=== PATIENT | male | born 1970 | race American Indian/Alaskan Native ===

== ENCOUNTER 2016-07-18 19:29 | Emergency (ER) | payer MEDICARE, MEDICAID ==
[2016-07-18 20:04] VITALS: BP 148/79
[2016-07-18] MEDS ORDERED: Clindamycin Phosphate 900 MG in Sodium Chloride 0.9% 100 ML IV ONE (20:09)
--- NOTE | 2016-07-18 20:15 | EDM.PDOC ---
ED HPI Skin/Rash - General Chief Complaint: Skin Complaint Stated Complaint: ABCESS Time Seen by Provider: 07/18/16 20:09 Source: Reports: Patient History Limitations: Reports: No limitations - History of Present Illness INITIAL COMMENTS - FREE TEXT/NARRATIVE: c/o recurrent axillary abscess. prefer ABX Vs aspiration. 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 - Related Data Allergies Allergy/AdvReac Type Severity Reaction Status Date / Time metformin Allergy Abdominal Verified 07/18/16 20:04 Pain Home Meds: Ambulatory Orders Medication Instructions Recorded Confirmed Lisinopril [Prinivil] 10 mg PO BID 01/28/14 07/18/16 Metoprolol Succinate 150 mg PO BID 01/28/14 07/18/16 amLODIPine Besylate [Amlodipine 5 mg PO BID 01/28/14 07/18/16 Besylate] Insulin Detemir [Levemir] 8 units SQ BID 04/20/16 07/18/16 Insulin Aspart [Novolog Flexpen] 8 units SQ TID 07/18/16 07/18/16 Past Medical History HEENT History: Reports: Cataract Cardiovascular History: Reports: Hypertension Respiratory History: Reports: Bronchitis, recurrent, Pneumonia, recurrent Gastrointestinal History: Reports: None Genitourinary History: Reports: Other (see below) Other Genitourinary History: former hemodialysis Musculoskeletal History: Reports: None Neurological History: Reports: None Psychiatric History: Reports: None Endocrine/Metabolic History: Reports: Diabetes, type II Hematologic History: Reports: None 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 Oncologic (Cancer) History: Reports: None Dermatologic History: Reports: None - Infectious Disease History Infectious Disease History: Reports: None - Past Surgical History Head Surgeries/Procedures: Reports: None Cardiovascular Surgical History: Reports: None Respiratory Surgical History: Reports: None GI Surgical History: Reports: Cholecystectomy Male Surgical History: Reports: Nephrectomy, Other (see below) Other Male Surgeries/Procedures: kidney transplant October 2015 Endocrine Surgical History: Reports: None Neurological Surgical History: Reports: None Musculoskeletal Surgical History: Reports: None Social & Family History - Family History Family Medical History: Noncontributory - Tobacco Use Smoking Status *Q: Never Smoker Years of Tobacco use: 10 Packs/Tins Daily: 0.2 Used Tobacco, but Quit: No Month Tobacco Last Used: jan Second Hand Smoke Exposure: Yes - Alcohol Use Days Per Week of Alcohol Use: 0 - Recreational Drug Use Recreational Drug Use: No - Living Situation & Occupation Living situation: Reports: with family ED ROS GENERAL - Review of Systems Review Of Systems: ROS reveals no pertinent complaints other than HPI. ED EXAM, SKIN/RASH Exam: See Below Exam Limited By: No limitations General Appearance: alert, WD/WN, no apparent distress Ears: hearing grossly normal Throat/Mouth: Normal voice, No airway compromise Head: atraumatic Neck: non-tender, full range of motion Respiratory/Chest: no respiratory distress Cardiovascular: regular rate, rhythm GI/Abdominal: soft, non tender Extremities: other (left axillary tender abscess mild eythema without lymphangitis, NV wnl) Neurological: alert, oriented, normal cognition, normal gait, no motor/sensory deficits Psychiatric: normal affect, normal mood Skin: Warm, Dry Location, Skin: upper extremity, left Characteristics: erythematous Associated features: tenderness, swelling Lymphatic: no adenopathy Course - Vital Signs Last Recorded V/S: Last Vital Signs Temp 35.8 C 07/18/16 19:58 Pulse 74 07/18/16 19:58 Resp 16 07/18/16 19:58 BP 148/79 H 07/18/16 19:58 Pulse Ox 99 07/18/16 19:58 - Orders/Labs/Meds Meds: Medications Discontinued Medications Generic Name Dose Route Start Last Admin Trade Name Gonzalez PRN Reason Stop Dose Admin Clindamycin Phosphate 900 mg/ 106 mls @ 200 mls/hr 07/18/16 20:09 07/18/16 20 :21 Sodium Chloride IV 07/18/16 20:40 200 mls/hr ONETIME ONE Administration - Re-Assessments/Exams Free Text/Narrative Re-Assessment/Exam: 07/18/16 21:16 s/p IV Rx=better Departure - Departure Time of Disposition: 21:16 Disposition: Home, Self-Care 01 Condition: good Clinical Impression: Abscess Instructions: Abscess, [id number] Forms: ED Department Discharge Additional Instructions: 1) keep area clean, dry, covered 2) try hot compress 3) follow up at clinic or recheck as needed rx given: clindamycin 150mg qid x 40
== END 2016-07-18 20:20 | disposition home or self-care (01) ==
LOC: DL.ED 19:29
DX: L02.412 Cutaneous abscess of left axilla (principal); E11.9 Type 2 diabetes mellitus without complications; Z79.4 Long term (current) use of insulin; I10 Essential (primary) hypertension; Z94.0 Kidney transplant status; Z88.8 Allergy status to other drugs, medicaments and biological substances; Z79.899 Other long term (current) drug therapy
CPT/HCPCS: 96374; 99283; J7050; S0077

== ENCOUNTER 2016-09-04 18:33 | Emergency (ER) | payer MEDICARE, MEDICAID ==
[2016-09-04] MEDS ORDERED: Albuterol/Ipratropium 3.0-0.5 MG/3 ML Neb Soln NEB ONE (18:50)
[2016-09-04 18:53] VITALS: BP 156/80
--- NOTE | 2016-09-04 18:54 | EDM.PDOC ---
ED HPI GENERAL MEDICAL PROBLEM - General Chief Complaint: General Stated Complaint: CONGESTION Time Seen by Provider: 09/04/16 18:52 Source of Information: Reports: Patient History Limitations: Reports: No Limitations - History of Present Illness INITIAL COMMENTS - FREE TEXT/NARRATIVE: 2 weeks h/o cough congestion not seen anyone and not getting any better. coughing all night hard to sleep. Middle Chest Pain Score (Numeric/FACES): 4 - Related Data Allergies Allergy/AdvReac Type Severity Reaction Status Date / Time metformin Allergy Abdominal Verified 09/04/16 18:46 Pain Home Meds: Home Meds Metoprolol Succinate 150 mg PO BID 01/28/14 [History] amLODIPine Besylate [Amlodipine Besylate] 5 mg PO BID 01/28/14 [History] Insulin Detemir [Levemir] 10 units SQ BID 04/20/16 [History] Insulin Aspart [Novolog Flexpen] 10 units SQ TID 07/18/16 [History] Mycophenolate Mofetil [Cellcept] 0 mg PO BID 09/04/16 [History] Prednisone [IJP: Prednisone] 0 mg PO BID 09/04/16 [History] Past Medical History HEENT History: Reports: Cataract Cardiovascular History: Reports: Hypertension Respiratory History: Reports: Bronchitis, Recurrent, Pneumonia, Recurrent Gastrointestinal History: Reports: None Genitourinary History: Reports: Other (See Below) Other Genitourinary History: former hemodialysis Musculoskeletal History: Reports: None Neurological History: Reports: None Psychiatric History: Reports: None Endocrine/Metabolic History: Reports: Diabetes, Type II Hematologic History: Reports: None Immunologic History: Reports: Solid Organ Transplant Oncologic (Cancer) History: Reports: None Dermatologic History: Reports: None Other Dermatologic History: abscess - Infectious Disease History Infectious Disease History: Reports: None - Past Surgical History Male Surgical History: Reports: Nephrectomy, Other (See Below) Social & Family History - Family History Family Medical History: Noncontributory - Tobacco Use Smoking Status *Q: Never Smoker Years of Tobacco use: 10 Packs/Tins Daily: 0.2 Used Tobacco, but Quit: No Month Tobacco Last Used: jan Second Hand Smoke Exposure: Yes - Alcohol Use Days Per Week of Alcohol Use: 0 - Recreational Drug Use Recreational Drug Use: No - Living Situation & Occupation Living situation: Reports: with Family ED ROS GENERAL - Review of Systems Review Of Systems: ROS reveals no pertinent complaints other than HPI. ED EXAM, GENERAL - Physical Exam Exam: See Below Exam Limited By: No Limitations General Appearance: Alert, WD/WN, Mild Distress, Other (episodic cough spasms) Ears: Normal External Exam, Normal Canal, Hearing Grossly Normal Ear Exam: Bilateral Ear: TM Dull Nose: Clear Rhinorrhea Throat/Mouth: Inflammation Head: Atraumatic Neck: Non-Tender, Full Range of Motion Respiratory/Chest: No Respiratory Distress, No Accessory Muscle Use, Rhonchi, Wheezing. No: Decreased Breath Sounds, Retractions, Splinting Cardiovascular: Regular Rate, Rhythm GI/Abdominal: Soft, Non-Tender Neurological: Alert, Oriented, Normal Cognition, Normal Gait, No Motor/Sensory Deficits Psychiatric: Normal Affect, Normal Mood Skin Exam: Warm, Dry Lymphatic: No Adenopathy Course - Vital Signs Last Recorded V/S: Last Vital Signs Temp 36.3 C 09/04/16 18:50 Pulse 76 09/04/16 19:06 Resp 18 09/04/16 18:50 BP 156/80 H 09/04/16 18:50 Pulse Ox 95 09/04/16 18:50 - Orders/Labs/Meds Orders: Active Orders 24 hr Category Date Time Status RT Aerosol Therapy [RC] ASDIRECTED Care 09/04/16 18:50 Active CULTURE STREP A CONFIRMATION [] Stat Lab 09/04/16 18:49 Results STREP SCRN A RAPID W CULT CONF [] Stat Lab 09/04/16 18:49 Results Meds: Medications Discontinued Medications Generic Name Dose Route Start Last Admin Trade Name Janesq PRN Reason Stop Dose Admin Albuterol/Ipratropium 3 ml 09/04/16 18:50 09/04/16 18:56 Duoneb 3.0-0.5 Mg/3 Ml NEB 09/04/16 18:51 3 ml ONETIME ONE Administration Promethazine HCl/Codeine 5 ml 09/04/16 19:36 09/04/16 19:44 Phenergan With Codeine PO 09/04/16 19:37 5 ml ONETIME ONE Administration - Re-Assessments/Exams Free Text/Narrative Re-Assessment/Exam: 09/04/16 19:37 s/p duoneb=much better Departure - Departure Time of Disposition: 19:52 Disposition: Home, Self-Care 01 Condition: good Clinical Impression: Bronchospasm with bronchitis, acute - Discharge Information Instructions: Bronchospasm, Adult Forms: ED Department Discharge Additional Instructions: 1) sleep and rest 2) don't sleep flat at night 3) use neb 3 times daily 4) follow up at clinic or recheck as needed rx given: albuterol 2.5mg solution tid prn phenergan codeine syrup qid prn - My Orders Last 24 Hours: My Active Orders 09/04/16 18:49 CULTURE STREP A CONFIRMATION [RM] Stat STREP SCRN A RAPID W CULT CONF [RM] Stat 09/04/16 18:50 RT Aerosol Therapy [RC] ASDIRECTED - Assessment/Plan Last 24 Hours: My Active Orders 09/04/16 18:49 CULTURE STREP A CONFIRMATION [RM] Stat STREP SCRN A RAPID W CULT CONF [RM] Stat 09/04/16 18:50 RT Aerosol Therapy [RC] ASDIRECTED
[2016-09-04] MEDS ORDERED: Codeine/Promethazine 10-6.25 MG/5 ML Syrup 5 ML UD Cup PO ONE (19:36)
== END 2016-09-04 19:57 | disposition home or self-care (01) ==
LOC: DL.ED 18:33
DX: J20.9 Acute bronchitis, unspecified (principal); E11.9 Type 2 diabetes mellitus without complications; Z88.8 Allergy status to other drugs, medicaments and biological substances; Z79.4 Long term (current) use of insulin; Z87.01 Personal history of pneumonia (recurrent)
CPT/HCPCS: 71020; 87081; 87430; 87804; 94640; 99284; A9270

== ENCOUNTER 2016-09-09 16:07 | Emergency (ER) | payer MEDICARE, MEDICAID ==
[2016-09-09 16:23] VITALS: BP 136/75
--- NOTE | 2016-09-09 16:28 | EDM.PDOC ---
{null, ED HPI GENERAL MEDICAL PROBLEM - General Chief Complaint: ENT Problem Stated Complaint: ENT Time Seen by Provider: 09/09/16 16:20 Source of Information: Reports: Patient - History of Present Illness INITIAL COMMENTS - FREE TEXT/NARRATIVE: patient comes emergency Department today with complaints of one week of sinus congestion and ear plugging. He has a lot of pressure in his ears which has slowly gotten worse over the past 24-48 hours. Right Ear Pain Score (Numeric/FACES): 3 - Related Data Allergies Allergy/AdvReac Type Severity Reaction Status Date / Time metformin Allergy Abdominal Verified 09/09/16 16:19 Pain Home Meds: Home Meds Metoprolol Succinate 150 mg PO BID 01/28/14 [History] amLODIPine Besylate [Amlodipine Besylate] 5 mg PO BID 01/28/14 [History] Insulin Detemir [Levemir] 10 units SQ BID 04/20/16 [History] Insulin Aspart [Novolog Flexpen] 10 units SQ TID 07/18/16 [History] Mycophenolate Mofetil [Cellcept] 0 mg PO BID 09/04/16 [History] Prednisone [IJP: Prednisone] 0 mg PO BID 09/04/16 [History] Past Medical History HEENT History: Reports: Cataract Cardiovascular History: Reports: Hypertension Respiratory History: Reports: Bronchitis, Recurrent, Pneumonia, Recurrent Gastrointestinal History: Reports: None Genitourinary History: Reports: Other (See Below) Other Genitourinary History: former hemodialysis Musculoskeletal History: Reports: None Neurological History: Reports: None Psychiatric History: Reports: None Endocrine/Metabolic History: Reports: Diabetes, Type II Hematologic History: Reports: None Immunologic History: Reports: Solid Organ Transplant Oncologic (Cancer) History: Reports: None Dermatologic History: Reports: None Other Dermatologic History: abscess - Infectious Disease History Infectious Disease History: Reports: None - Past Surgical History Head Surgeries/Procedures: Reports: None Male Surgical History: Reports: Nephrectomy, Other (See Below) Other Male Surgeries/Procedures: kidney trasplant 11/21/16 Social & Family History - Family History Family Medical History: Noncontributory - Tobacco Use Smoking Status *Q: Never Smoker Years of Tobacco use: 10 Packs/Tins Daily: 0.2 Used Tobacco, but Quit: No Month Tobacco Last Used: oct Second Hand Smoke Exposure: Yes - Caffeine Use Caffeine Use: Reports: Coffee, Soda - Alcohol Use Days Per Week of Alcohol Use: 0 - Recreational Drug Use Recreational Drug Use: No - Living Situation & Occupation Living situation: Reports: with Family ED ROS ENT - Review of Systems Review Of Systems: See Below ED EXAM, ENT - Physical Exam Exam: See Below Exam Limited By: No Limitations General Appearance: Alert, WD/WN, No Apparent Distress Eye Exam: Bilateral Eye: EOMI, Normal Inspection, PERRL Ears: Normal External Exam, Normal Canal, Hearing Grossly Normal, Normal TMs Nose: Normal Inspection, No Blood, Clear Rhinorrhea, Nasal Swelling, Injected Turbinates. No: Normal Mucousa (mildly erythematous and boggy turbinates bilaterally.), Nasal Tenderness, Septal Deformity, Active Bleeding Mouth/Throat: Normal Inspection, Normal Gums, Normal Lips, Normal Oropharynx ( except for posterior pharynx with cobblestoning and pink salmon colored vesicles consistent with postnasal drip.), Normal Teeth Head: Atraumatic, Normocephalic Neck: Normal Inspection, Supple, Non-Tender, Full Range of Motion Respiratory/Chest: No Respiratory Distress, Lungs Clear, Normal Breath Sounds, No Accessory Muscle Use, Chest Non-Tender Cardiovascular: Normal Peripheral Pulses, Regular Rate, Rhythm, No Edema GI/Abdominal: Normal Bowel Sounds, Soft, Non-Tender (Male) Exam: Deferred Rectal (Males) Exam: Deferred Extremities: Normal Inspection, Normal Capillary Refill Neurological: Alert, Oriented, CN II-XII Intact Psychiatric: Normal Affect, Normal Mood Skin: Warm, Dry, Intact, Normal Color, No Rash Course - Vital Signs Last Recorded V/S: Last Vital Signs Temp 36.6 C 09/09/16 16:19 Pulse 97 09/09/16 16:19 Resp 18 09/09/16 16:19 BP 136/75 09/09/16 16:19 Pulse Ox 98 09/09/16 16:19 - Orders/Labs/Meds Orders: Active Orders 24 hr Category Date Time Status CULTURE STREP A CONFIRMATION [] Stat Lab 09/09/16 16:24 Results STREP SCRN A RAPID W CULT CONF [] Stat Lab 09/09/16 16:24 Results - Re-Assessments/Exams Free Text/Narrative Re-Assessment/Exam: 09/09/16 17:06 negative strep screen. I explained to the patient that this is most likely environmental allergies or other sinusitis. Conservative management with nasal saline rinses to take his own and continuing albuterol would be most appropriate at this time. Do not find any indication for antibiotic therapy at this time. His bronchitis is improving with his albuterol for which he can continue. Treating his sinuses may also help his bronchitis. Discharge instructions as below were explained to the patient he is comfortable with this plan his questions were answered Departure - Departure Time of Disposition: 17:02 Disposition: Home, Self-Care 01 Condition: good Clinical Impression: Sinus congestion, Sinus headache - Discharge Information Instructions: Sinusitis, Adult, [id number], Sinus Headache Forms: ED Department Discharge Additional Instructions: Tylenol and/or ibuprofen as needed for headache. Nasal saline rinse bilateral nares twice a day. May use a Manning pot or other [id number] mechanisms. 10 minutes after the nasal saline Flonase 2 sprays each nares once a day for one week then one spray each nares following that. May continue the over the counter Nasal decongestant. Continue the Albuterol for the bronchitis and cough. Honey as needed for cough. - My Orders Last 24 Hours: My Active Orders 09/09/16 16:24 CULTURE STREP A CONFIRMATION [RM] Stat STREP SCRN A RAPID W CULT CONF [RM] Stat - Assessment/Plan Last 24 Hours: My Active Orders 09/09/16 16:24 CULTURE STREP A CONFIRMATION [RM] Stat STREP SCRN A RAPID W CULT CONF [RM] Stat Assessment:: Sinus congestion Sinus headache. Plan: Tylenol and/or ibuprofen as needed for headache. Nasal saline rinse bilateral nares twice a day. May use a Manning pot or other [id number] mechanisms. 10 minutes after the nasal saline Flonase 2 sprays each nares once a day for one week then one spray each nares following that. May continue the over the counter Nasal decongestant. Continue the Albuterol for the bronchitis and cough. Honey as needed for cough. }
== END 2016-09-09 17:16 | disposition home or self-care (01) ==
LOC: DL.ED 16:07
DX: R09.81 Nasal congestion (principal); R51 Headache; I10 Essential (primary) hypertension; E11.9 Type 2 diabetes mellitus without complications; Z98.890 Other specified postprocedural states; Z79.4 Long term (current) use of insulin; Z88.8 Allergy status to other drugs, medicaments and biological substances
CPT/HCPCS: 87081; 87430; 99282

== ENCOUNTER 2016-12-11 19:01 | Emergency (ER) | payer MEDICARE, MEDICAID ==
[2016-12-11] MEDS ORDERED: Clindamycin HCl 150 MG Cap PO ONE (19:19)
--- NOTE | 2016-12-11 19:24 | EDM.PDOC ---
ED HPI GENERAL MEDICAL PROBLEM - General Chief Complaint: Bite:Animal, Insect Stated Complaint: SPIDER BITE ON LEG Time Seen by Provider: 12/11/16 19:21 Source of Information: Reports: Patient History Limitations: Reports: No Limitations - History of Present Illness INITIAL COMMENTS - FREE TEXT/NARRATIVE: occurred 1 1/2 weeks ago not seen anyone not getting better, been cleaning it daily with peroxide and bandage - Related Data Allergies Allergy/AdvReac Type Severity Reaction Status Date / Time metformin Allergy Abdominal Verified 12/11/16 19:06 Pain Home Meds: Home Meds Metoprolol Succinate 150 mg PO BID 01/28/14 [History] amLODIPine Besylate [Amlodipine Besylate] 5 mg PO BID 01/28/14 [History] Insulin Detemir [Levemir] 10 units SQ BID 04/20/16 [History] Insulin Aspart [Novolog Flexpen] 10 units SQ TID 07/18/16 [History] Mycophenolate Mofetil [Cellcept] 0 mg PO BID 09/04/16 [History] Prednisone [IJP: Prednisone] 0 mg PO BID 09/04/16 [History] Calcitriol 0.25 mcg PO DAILY 12/11/16 [History] Potassium Phosphate, Dibasic [Potassium Phosphate] 1 gm MC TID 12/11/16 [History ] Past Medical History HEENT History: Reports: Cataract Cardiovascular History: Reports: Hypertension Respiratory History: Reports: Bronchitis, Recurrent, Pneumonia, Recurrent Gastrointestinal History: Reports: None Genitourinary History: Reports: Other (See Below) Other Genitourinary History: former hemodialysis Musculoskeletal History: Reports: None Neurological History: Reports: None Psychiatric History: Reports: None Endocrine/Metabolic History: Reports: Diabetes, Type II Hematologic History: Reports: None Immunologic History: Reports: Solid Organ Transplant Oncologic (Cancer) History: Reports: None Dermatologic History: Reports: None Other Dermatologic History: abscess - Infectious Disease History Infectious Disease History: Reports: None - Past Surgical History Head Surgeries/Procedures: Reports: None Male Surgical History: Reports: Nephrectomy, Other (See Below) Other Male Surgeries/Procedures: kidney trasplant 11/21/16 Social & Family History - Family History Family Medical History: Noncontributory - Tobacco Use Smoking Status *Q: Never Smoker Years of Tobacco use: 10 Packs/Tins Daily: 0.2 Used Tobacco, but Quit: No Month Tobacco Last Used: jan Second Hand Smoke Exposure: No - Caffeine Use Caffeine Use: Reports: Coffee, Soda - Alcohol Use Days Per Week of Alcohol Use: 0 - Recreational Drug Use Recreational Drug Use: No - Living Situation & Occupation Living situation: Reports: with Family ED ROS GENERAL - Review of Systems Review Of Systems: ROS reveals no pertinent complaints other than HPI. ED EXAM, ANIMAL BITE - Physical Exam Exam: See Below Exam Limited By: No Limitations General Appearance: Alert, WD/WN, No Apparent Distress Ears: Hearing Grossly Normal Throat/Mouth: Normal Voice, No Airway Compromise Head: Atraumatic Neck: Non-Tender, Full Range of Motion Respiratory/Chest: No Respiratory Distress Cardiovascular: Regular Rate, Rhythm GI/Abdominal: Soft, Non-Tender Extremities: Other (left thigh with draining abscess mild local erthema without lymphangitis, NV wnl, ) Neurological: Alert, Oriented, Normal Cognition, Normal Gait, No Motor/Sensory Deficits Psychiatric: Normal Affect, Normal Mood Skin Exam: Normal Color, Warm/Dry Course - Vital Signs Last Recorded V/S: Last Vital Signs Temp 36.1 C 12/11/16 19:04 Pulse 78 12/11/16 19:04 Resp 18 12/11/16 19:04 BP 178/87 H 12/11/16 19:04 Pulse Ox 99 12/11/16 19:04 - Orders/Labs/Meds Orders: Active Orders 24 hr Category Date Time Status CULTURE WOUND [RM] Stat Lab 12/11/16 19:16 Ordered Clindamycin HCl [Cleocin] Med 12/11/16 19:19 Once 150 mg PO ONETIME ONE Medication Orders Clindamycin HCl (Cleocin) 150 mg PO ONETIME ONE Stop: 12/11/16 19:20 Meds: Medications Generic Name Dose Route Start Last Admin Trade Name Freq PRN Reason Stop Dose Admin Clindamycin HCl 150 mg 12/11/16 19:19 Cleocin PO 12/11/16 19:20 ONETIME ONE Departure - Departure Time of Disposition: 19:23 Disposition: Home, Self-Care 01 Condition: Good Clinical Impression: Abscess - Discharge Information Instructions: Insect Bite, [id number] Forms: ED Department Discharge Additional Instructions: 1) keep wound clean dry covered 2) recheck if looks worse 3) follow up at clinic rx given; clindamycin 150mg qid x 40 - My Orders Last 24 Hours: My Active Orders 12/11/16 19:16 CULTURE WOUND [RM] Stat 12/11/16 19:19 Clindamycin HCl [Cleocin] 150 mg PO ONETIME ONE - Assessment/Plan Last 24 Hours: My Active Orders 12/11/16 19:16 CULTURE WOUND [RM] Stat 12/11/16 19:19 Clindamycin HCl [Cleocin] 150 mg PO ONETIME ONE
[2016-12-11 19:28] VITALS: BP 154/81
== END 2016-12-11 19:28 | disposition home or self-care (01) ==
LOC: DL.ED 19:01
DX: L02.416 Cutaneous abscess of left lower limb (principal); I10 Essential (primary) hypertension; E11.9 Type 2 diabetes mellitus without complications; Z88.8 Allergy status to other drugs, medicaments and biological substances; Z79.4 Long term (current) use of insulin; Z87.01 Personal history of pneumonia (recurrent)
CPT/HCPCS: 87070; 99283; A9270; 87077; 87186

== ENCOUNTER 2016-12-21 19:19 | Emergency (ER) | payer MEDICARE, MEDICAID, OTHER ==
[2016-12-21] MEDS ORDERED: Acetaminophen/HYDROcodone 325-10 MG Tab PO ONE (20:07)
[2016-12-21] MEDS ORDERED: Clindamycin HCl 150 MG Cap PO ONE (20:07)
--- NOTE | 2016-12-21 20:13 | EDM.PDOC ---
ED HPI GENERAL MEDICAL PROBLEM - General Chief Complaint: Cardiovascular Problem Stated Complaint: BLOOD PRESSURE HIGH, [id number] Time Seen by Provider: 12/21/16 20:08 Source of Information: Reports: Patient History Limitations: Reports: No Limitations - History of Present Illness INITIAL COMMENTS - FREE TEXT/NARRATIVE: states been taking his Rx but has a raging tooth ache from broken tooth. denies CP/SOB/WRIGHT. Left Gums Pain Score (Numeric/FACES): 6 - Related Data Allergies Allergy/AdvReac Type Severity Reaction Status Date / Time metformin Allergy Abdominal Verified 12/21/16 19:45 Pain Home Meds: Home Meds Metoprolol Succinate 100 mg PO BID 01/28/14 [History] amLODIPine Besylate [Amlodipine Besylate] 5 mg PO BID 01/28/14 [History] Insulin Detemir [Levemir] 10 units SQ BID 04/20/16 [History] Insulin Aspart [Novolog Flexpen] 10 units SQ TID 07/18/16 [History] Mycophenolate Mofetil [Cellcept] 250 mg PO BID 09/04/16 [History] Prednisone [IJP: Prednisone] 5 mg PO DAILY 09/04/16 [History] Calcitriol 0.25 mcg PO DAILY 12/11/16 [History] Potassium Phosphate, Dibasic [Potassium Phosphate] 1 gm MC TID 12/11/16 [History ] Past Medical History HEENT History: Reports: Cataract Cardiovascular History: Reports: Hypertension Respiratory History: Reports: Bronchitis, Recurrent, Pneumonia, Recurrent Gastrointestinal History: Reports: None Genitourinary History: Reports: Other (See Below) Other Genitourinary History: former hemodialysis Musculoskeletal History: Reports: None Neurological History: Reports: None Psychiatric History: Reports: None Endocrine/Metabolic History: Reports: Diabetes, Type II Hematologic History: Reports: None Immunologic History: Reports: Solid Organ Transplant Oncologic (Cancer) History: Reports: None Dermatologic History: Reports: None Other Dermatologic History: abscess - Infectious Disease History Infectious Disease History: Reports: None - Past Surgical History Head Surgeries/Procedures: Reports: None Male Surgical History: Reports: Nephrectomy, Other (See Below) Other Male Surgeries/Procedures: kidney trasplant 11/21/16 Social & Family History - Family History Family Medical History: Noncontributory - Tobacco Use Smoking Status *Q: Never Smoker Years of Tobacco use: 10 Packs/Tins Daily: 0.2 Used Tobacco, but Quit: No Month Tobacco Last Used: oct Second Hand Smoke Exposure: No - Caffeine Use Caffeine Use: Reports: Coffee, Soda - Alcohol Use Days Per Week of Alcohol Use: 0 - Recreational Drug Use Recreational Drug Use: No - Living Situation & Occupation Living situation: Reports: with Family ED ROS GENERAL - Review of Systems Review Of Systems: ROS reveals no pertinent complaints other than HPI. ED EXAM, GENERAL - Physical Exam Exam: See Below Exam Limited By: No Limitations General Appearance: Alert, WD/WN, Mild Distress, Other (tooth pain) Ears: Hearing Grossly Normal Throat/Mouth: Normal Voice, No Airway Compromise Head: Atraumatic Neck: Non-Tender, Full Range of Motion Respiratory/Chest: No Respiratory Distress Cardiovascular: Regular Rate, Rhythm GI/Abdominal: Soft, Non-Tender Neurological: Alert, Oriented, Normal Cognition, Normal Gait, No Motor/Sensory Deficits Psychiatric: Flat Affect, Tearful Skin Exam: Warm, Dry, Normal Color Lymphatic: No Adenopathy Course - Vital Signs Last Recorded V/S: Last Vital Signs Temp 36.6 C 12/21/16 19:39 Pulse 74 12/21/16 19:39 Resp 18 12/21/16 19:39 BP 160/73 H 12/21/16 19:39 Pulse Ox 100 12/21/16 19:39 - Orders/Labs/Meds Orders: Active Orders 24 hr Category Date Time Status Acetaminophen/HYDROcodone [Bozman 325-10 MG] Med 12/21/16 20:07 Once 1 tab PO ONETIME ONE Clindamycin HCl [Cleocin] Med 12/21/16 20:07 Once 150 mg PO ONETIME ONE Departure - Departure Time of Disposition: 20:10 Disposition: Home, Self-Care 01 Condition: Good Clinical Impression: Dental abscess Instructions: Dental Abscess, [id number] Additional Instructions: 1) avoid solid foods 2) soft foods 3) see Dentist rx given; clindamycin 150mg qid x 40 vicodin 5/325mg bid x 12 - My Orders Last 24 Hours: My Active Orders 12/21/16 20:07 Acetaminophen/HYDROcodone [Bozman 325-10 MG] 1 tab PO ONETIME ONE Clindamycin HCl [Cleocin] 150 mg PO ONETIME ONE - Assessment/Plan Last 24 Hours: My Active Orders 08/30/17 20:07 Acetaminophen/HYDROcodone [Bozman 325-10 MG] 1 tab PO ONETIME ONE Clindamycin HCl [Cleocin] 150 mg PO ONETIME ONE
[2016-12-21 20:40] VITALS: BP 167/86
== END 2016-12-21 20:40 | disposition home or self-care (01) ==
LOC: DL.ED 19:19
DX: K04.7 Periapical abscess without sinus (principal); I10 Essential (primary) hypertension; Z87.01 Personal history of pneumonia (recurrent); E11.9 Type 2 diabetes mellitus without complications; Z94.0 Kidney transplant status; Z88.8 Allergy status to other drugs, medicaments and biological substances; Z79.4 Long term (current) use of insulin; Z79.899 Other long term (current) drug therapy
CPT/HCPCS: 99282; A9270

== ENCOUNTER 2017-05-13 13:19 | Emergency (ER) | payer MEDICARE, MEDICAID ==
[2017-05-13 13:41] VITALS: BP 149/83
--- NOTE | 2017-05-13 13:59 | CR ---
Clinical history: 46-year-old diabetic male with clinical "neuropathy" who fell injuring right foot o monday (swollen). Interpretation: Slightly impacted but otherwise anatomically aligned distal diametaphyseal fractures of the right second, third and fourth metatarsals. Generalized osteopenia and chronic arthritic changes (small heel spur at the insertion plantar aponeu rosis base of the os calcis). Extensive arteriovascular calcifications in soft tissues typical of diabetic. No foreign body or oste omyelitis. CONCLUSION: Nondisplaced fractures 2nd, 3rd and 4th metatarsals right foot.
--- NOTE | 2017-05-13 19:31 | EDM.PDOC ---
Scribed by Mikayla Caballero 05/13/17 1465 for Marilia Smith NP ED HPI GENERAL MEDICAL PROBLEM - General Chief Complaint: Lower Extremity Injury/Pain Stated Complaint: [id number] FALL AND FOOT SWOLLEN AND BRUSE Time Seen by Provider: 05/13/17 14:40 Source of Information: Reports: Patient, RN, RN Notes Reviewed History Limitations: Reports: No Limitations - History of Present Illness INITIAL COMMENTS - FREE TEXT/NARRATIVE: Patient [place]. He hit his head and did loose consciousness.Pain initially after fall was back, shoulders and knees. He noticed swelling and ecchymosis on right ankle/foot on 05/11/17, Patient has partial feeling right leg/foot from diabetic neuropathy. No pain or throbbing, just swelling and bruising. Patient has been walking on it since accident. Onset Date: 05/09/17 Duration: Getting Worse Location: Reports: Lower Extremity, Right Quality: Reports: Ache Severity: Mild Improves with: Reports: None Worsens with: Reports: None Associated Symptoms: Reports: No Other Symptoms Right Feet Pain Score (Numeric/FACES): 3 - Related Data Allergies Allergy/AdvReac Type Severity Reaction Status Date / Time metformin Allergy Abdominal Verified 05/13/17 13:34 Pain Home Meds: Home Meds Metoprolol Succinate 100 mg PO BID 01/28/14 [History] amLODIPine Besylate [Amlodipine Besylate] 5 mg PO BID 01/28/14 [History] Insulin Detemir [Levemir] 10 units SQ BID 04/20/16 [History] Insulin Aspart [Novolog Flexpen] 10 units SQ TID 07/18/16 [History] Mycophenolate Mofetil [Cellcept] 250 mg PO BID 09/04/16 [History] Prednisone [IJP: Prednisone] 5 mg PO DAILY 09/04/16 [History] Calcitriol 0.25 mcg PO DAILY 12/11/16 [History] Potassium Phosphate, Dibasic [Potassium Phosphate] 1 gm MC TID 12/11/16 [History ] Past Medical History HEENT History: Reports: Cataract Cardiovascular History: Reports: Hypertension Respiratory History: Reports: Bronchitis, Recurrent, Pneumonia, Recurrent Gastrointestinal History: Reports: None Genitourinary History: Reports: Other (See Below) Other Genitourinary History: former hemodialysis Musculoskeletal History: Reports: None Neurological History: Reports: None Psychiatric History: Reports: None Endocrine/Metabolic History: Reports: Diabetes, Type II Hematologic History: Reports: None Immunologic History: Reports: Solid Organ Transplant Oncologic (Cancer) History: Reports: None Dermatologic History: Reports: None Other Dermatologic History: abscess - Infectious Disease History Infectious Disease History: Reports: None - Past Surgical History Head Surgeries/Procedures: Reports: None Male Surgical History: Reports: Nephrectomy, Other (See Below) Other Male Surgeries/Procedures: kidney trasplant 11/21/16 Social & Family History - Family History Family Medical History: Noncontributory - Tobacco Use Smoking Status *Q: Never Smoker Years of Tobacco use: 10 Packs/Tins Daily: 0.2 Used Tobacco, but Quit: No Month Tobacco Last Used: jan Second Hand Smoke Exposure: No - Caffeine Use Caffeine Use: Reports: Coffee - Alcohol Use Days Per Week of Alcohol Use: 0 - Recreational Drug Use Recreational Drug Use: No - Living Situation & Occupation Living situation: Reports: with Family Review of Systems - Review of Systems Review Of Systems: ROS reveals no pertinent complaints other than HPI. ED EXAM, GENERAL - Physical Exam Exam: See Below Exam Limited By: No Limitations General Appearance: Alert, WD/WN, No Apparent Distress Eye Exam: Bilateral Eye: Normal Inspection Ears: Normal External Exam, Normal Canal, Hearing Grossly Normal, Normal TMs Nose: Normal Inspection, Normal Mucosa, No Blood Throat/Mouth: Normal Inspection, Normal Lips, Normal Teeth, Normal Gums, Normal Oropharynx, Normal Voice, No Airway Compromise Head: Atraumatic, Normocephalic Neck: Normal Inspection, Supple, Non-Tender, Full Range of Motion Respiratory/Chest: No Respiratory Distress, Lungs Clear, Normal Breath Sounds, No Accessory Muscle Use, Chest Non-Tender Cardiovascular: Normal Peripheral Pulses, Regular Rate, Rhythm, No Edema, No Gallop, No JVD, No Murmur, No Rub GI/Abdominal: Normal Bowel Sounds, Soft, Non-Tender, No Organomegaly, No Distention, No Abnormal Bruit, No Mass (Male) Exam: Deferred Rectal (Males) Exam: Deferred Back Exam: Normal Inspection, Full Range of Motion, NT Extremities: Other (right foot swollen and ecchymosis. ) Neurological: Alert Psychiatric: Normal Affect, Normal Mood Skin Exam: Other (see extremity exam) Lymphatic: No Adenopathy Course - Vital Signs Last Recorded V/S: Last Vital Signs Temp 36.4 C 05/13/17 13:39 Pulse 73 05/13/17 13:39 Resp 20 05/13/17 13:39 BP 149/83 H 05/13/17 13:39 Pulse Ox 100 05/13/17 13:39 - Radiology Interpretation Free Text/Narrative:: Right foot x-ray: Nondisplaced fractures 2nd, 3ed and 4th metararsals right foot. See Rad report. Departure - Departure Time of Disposition: 15:02 Disposition: Home, Self-Care 01 Condition: Fair Clinical Impression: Fracture of metatarsal bone of right foot, Diabetic neuropathy, Wound abscess - Discharge Information Instructions: Cast or Splint Care, [id number], Wound Infection, [id number] , Metatarsal Fracture Forms: ED Department Discharge Additional Instructions: Use walking boot Follow up with Ortho next week RX: Bactrim Follow up with wound care next week as well Follow up with your primary care facility I have read and agree with the documentation that has been completed regarding this visit. By signing this record, I attest that the documentation was completed in my physical presence and is an accurate record of the encounter.
== END 2017-05-13 15:15 | disposition home or self-care (01) ==
LOC: DL.ED 13:19
DX: S92.324A Nondisplaced fracture of second metatarsal bone, right foot, initial encounter for closed fracture (principal); S92.334A Nondisplaced fracture of third metatarsal bone, right foot, initial encounter for closed fracture; S92.344A Nondisplaced fracture of fourth metatarsal bone, right foot, initial encounter for closed fracture; I10 Essential (primary) hypertension; E11.9 Type 2 diabetes mellitus without complications; Z88.8 Allergy status to other drugs, medicaments and biological substances; Z79.4 Long term (current) use of insulin; Z79.899 Other long term (current) drug therapy; W00.0XXA Fall on same level due to ice and snow, initial encounter
CPT/HCPCS: 73630-RT; 99283

== ENCOUNTER 2017-09-26 18:44 | Emergency (ER) | payer MEDICARE, MEDICAID, OTHER ==
[2017-09-26 19:28] VITALS: BP 164/85
[2017-09-26] MEDS ORDERED: Amoxicillin/Clavulanate K 875-125 MG Tab PO ONE (21:15)
--- NOTE | 2017-09-26 21:18 | EDM.PDOC ---
ED HPI GENERAL MEDICAL PROBLEM - General Chief Complaint: ENT Problem Stated Complaint: [id number] MIGHT BE THE FLU Time Seen by Provider: 09/26/17 21:00 Source of Information: Reports: Patient History Limitations: Reports: No Limitations - History of Present Illness INITIAL COMMENTS - FREE TEXT/NARRATIVE: This 46 yo male patient reports to the ED with a 3 week history of sinus congestion and pressure. The patient reports his symptoms have been getting worse over the past couple of days. The patient has not been seen by a primary care facility for these symptoms due to the providers changing at the [facility]. Duration: Week(s):, Constant, Getting Worse Location: Reports: Head Quality: Reports: Ache, Dull Severity: Moderate Improves with: Reports: None Worsens with: Reports: None Associated Symptoms: Reports: No Other Symptoms - Related Data Allergies Allergy/AdvReac Type Severity Reaction Status Date / Time metformin Allergy Abdominal Verified 09/26/17 19:27 Pain Home Meds: Home Meds Metoprolol Succinate 200 mg PO BID 01/28/14 [History] amLODIPine Besylate [Amlodipine Besylate] 5 mg PO BID 01/28/14 [History] Insulin Detemir [Levemir] 10 units SQ BID 04/20/16 [History] Insulin Aspart [Novolog Flexpen] 17 units SQ BID 07/18/16 [History] Mycophenolate Mofetil [Cellcept] 250 mg PO BID 09/04/16 [History] Prednisone [IJP: Prednisone] 5 mg PO DAILY 09/04/16 [History] Calcitriol 0.25 mcg PO DAILY 12/11/16 [History] Calcium Acetate [PhosLo] 667 mg PO BID 09/26/17 [History] Tacrolimus [Envarsus Xr] 2.5 mg PO BID 09/26/17 [History] Past Medical History HEENT History: Reports: Cataract Cardiovascular History: Reports: Hypertension Respiratory History: Reports: Bronchitis, Recurrent, Pneumonia, Recurrent Gastrointestinal History: Reports: None Genitourinary History: Reports: Other (See Below) Other Genitourinary History: former hemodialysis Musculoskeletal History: Reports: None Neurological History: Reports: None Psychiatric History: Reports: None Endocrine/Metabolic History: Reports: Diabetes, Type II Hematologic History: Reports: None Immunologic History: Reports: Solid Organ Transplant Oncologic (Cancer) History: Reports: None Dermatologic History: Reports: None Other Dermatologic History: abscess - Infectious Disease History Infectious Disease History: Reports: None - Past Surgical History Head Surgeries/Procedures: Reports: None Male Surgical History: Reports: Nephrectomy, Other (See Below) Other Male Surgeries/Procedures: kidney trasplant 11/21/16 Social & Family History - Family History Family Medical History: Noncontributory - Tobacco Use Smoking Status *Q: Never Smoker Second Hand Smoke Exposure: No - Caffeine Use Caffeine Use: Reports: Coffee - Recreational Drug Use Recreational Drug Use: No - Living Situation & Occupation Living situation: Reports: with Family ED ROS ENT - Review of Systems Review Of Systems: ROS reveals no pertinent complaints other than HPI. ED EXAM, ENT - Physical Exam Exam: See Below Exam Limited By: No Limitations General Appearance: Alert, WD/WN, Moderate Distress Eye Exam: Bilateral Eye: EOMI, Normal Inspection, PERRL Ears: Normal External Exam, Normal Canal, Hearing Grossly Normal, Normal TMs Nose: Normal Inspection, Normal Mucousa, No Blood Mouth/Throat: Normal Inspection, Normal Gums, Normal Lips, Normal Oropharynx, Normal Teeth Head: Sinus Tenderness (bilateral maxillary and ethmoid) Neck: Normal Inspection, Supple, Non-Tender, Full Range of Motion Respiratory/Chest: No Respiratory Distress, Lungs Clear, Normal Breath Sounds, No Accessory Muscle Use, Chest Non-Tender Cardiovascular: Normal Peripheral Pulses, Regular Rate, Rhythm, No Edema, No Gallop, No JVD, No Murmur, No Rub GI/Abdominal: Normal Bowel Sounds, Soft, Non-Tender, No Organomegaly, No Distention, No Abnormal Bruit, No Mass (Male) Exam: Deferred Rectal (Males) Exam: Deferred Back: Normal Inspection, Full Range of Motion Extremities: Normal Inspection, Normal Range of Motion, Non-Tender, No Pedal Edema, Normal Capillary Refill Neurological: Alert, Oriented, CN II-XII Intact, Normal Cognition, Normal Gait, Normal Reflexes, No Motor/Sensory Deficits Psychiatric: Normal Affect, Normal Mood Skin: Warm, Dry, Intact, Normal Color, No Rash Lymphatic: No Adenopathy Course - Vital Signs Last Recorded V/S: Last Vital Signs Temp 36.6 C 09/26/17 19:25 Pulse 76 09/26/17 19:25 Resp 18 09/26/17 19:25 BP 164/85 H 09/26/17 19:25 Pulse Ox 100 09/26/17 19:25 - Orders/Labs/Meds Meds: Medications Discontinued Medications Generic Name Dose Route Start Last Admin Trade Name Gonzalez PRN Reason Stop Dose Admin Amoxicillin/Clavulanate Potassium 1 tab 09/26/17 21:15 Augmentin 875 Mg/125 Mg PO 09/26/17 21:16 ONETIME ONE Departure - Departure Time of Disposition: 21:16 Disposition: Home, Self-Care 01 Condition: Fair Clinical Impression: Sinusitis, acute, maxillary Qualifiers: Recurrence: non-recurrent Qualified Code(s): J01.00 - Acute maxillary sinusitis , unspecified - Discharge Information Instructions: Sinusitis, Adult, [id number] Referrals: Dileep Egan [Primary Care Provider] - Forms: ED Department Discharge Care Plan Goals: The patient was advised of the examination results during the visit. The patient was given an oral dose of Augmentin (875/125) while in the ED. The patient was discharged with a script for Augmentin (500/125) to take 1 by mouth 2 times per day for 10 days. If the patient has any additional symptoms or concerns, the patient should follow-up with his primary care facility or return to the emergency department.
== END 2017-09-26 21:25 | disposition home or self-care (01) ==
LOC: DL.ED 18:44
DX: J01.00 Acute maxillary sinusitis, unspecified (principal); I10 Essential (primary) hypertension; E11.9 Type 2 diabetes mellitus without complications; Z88.8 Allergy status to other drugs, medicaments and biological substances; Z79.899 Other long term (current) drug therapy; Z79.4 Long term (current) use of insulin
CPT/HCPCS: 99282; 99283; A9270

== ENCOUNTER 2018-01-15 20:02 | Emergency (ER) | payer MEDICARE, MEDICAID ==
--- NOTE | 2018-01-15 20:18 | EDM.PDOC ---
ED HPI GENERAL MEDICAL PROBLEM - General Chief Complaint: Cardiovascular Problem Stated Complaint: HIGH BP [id number] Time Seen by Provider: 01/15/18 20:18 Source of Information: Reports: Patient, RN, RN Notes Reviewed History Limitations: Reports: No Limitations - History of Present Illness INITIAL COMMENTS - FREE TEXT/NARRATIVE: Pt to ER with c/o high blood pressure. Patient states at home his pressures were 180's/90's. He states he takes 200mg of metoprolol twice daily. He states he took one of the 100mg of metoprolol to try to get his blood pressure to come down, so he still has 100mg of metoprolol to take tonight. He states his BP went up after he took the third one to 199/90's. This concerned him so he wanted to come in to be checked out. Patient states he has had some headache and dizziness. Patient denies CP, SOB, N/V/D. He states he is diabetic and does have a healing wound on the right foot from a blister. Patient has had a kidney transplant about 3 years ago. Onset: Gradual - Related Data Allergies Allergy/AdvReac Type Severity Reaction Status Date / Time metformin Allergy Abdominal Verified 01/15/18 20:08 Pain Home Meds: Home Meds Metoprolol Succinate 200 mg PO BID 01/28/14 [History] amLODIPine Besylate [Amlodipine Besylate] 10 mg PO DAILY 01/28/14 [History] Insulin Detemir [Levemir] 12 units SQ BID 04/20/16 [History] Insulin Aspart [Novolog Flexpen] 10 units SQ BID 07/18/16 [History] Mycophenolate Mofetil [Cellcept] 250 mg PO BID 09/04/16 [History] Prednisone [IJP: Prednisone] 5 mg PO DAILY 09/04/16 [History] Calcitriol 0.25 mcg PO DAILY 12/11/16 [History] Tacrolimus [Envarsus Xr] 2.5 mg PO DAILY 09/26/17 [History] Acetaminophen [Tylenol] 325 mg PO DAILY 01/15/18 [History] Aspirin [Ecotrin] 81 mg PO DAILY 01/15/18 [History] Mycophenolate Mofetil [Cellcept] 1,000 mg PO BID 01/15/18 [History] Tacrolimus 3 mg PO DAILY 01/15/18 [History] Past Medical History HEENT History: Reports: Cataract Cardiovascular History: Reports: Hypertension Respiratory History: Reports: Bronchitis, Recurrent, Pneumonia, Recurrent Gastrointestinal History: Reports: None Genitourinary History: Reports: Other (See Below) Other Genitourinary History: former hemodialysis Musculoskeletal History: Reports: None Neurological History: Reports: None Psychiatric History: Reports: None Endocrine/Metabolic History: Reports: Diabetes, Type II Hematologic History: Reports: None Immunologic History: Reports: Solid Organ Transplant Oncologic (Cancer) History: Reports: None Dermatologic History: Reports: None Other Dermatologic History: abscess - Infectious Disease History Infectious Disease History: Reports: None - Past Surgical History Head Surgeries/Procedures: Reports: None HEENT Surgical History: Reports: Cataract Surgery Male Surgical History: Reports: Nephrectomy, Other (See Below) Other Male Surgeries/Procedures: kidney trasplant 11/21/16 Social & Family History - Family History Family Medical History: Noncontributory - Caffeine Use Caffeine Use: Reports: Coffee - Living Situation & Occupation Living situation: Reports: with Family ED ROS GENERAL - Review of Systems Review Of Systems: ROS reveals no pertinent complaints other than HPI. ED EXAM, GENERAL - Physical Exam Exam: See Below Exam Limited By: No Limitations General Appearance: Alert, WD/WN, No Apparent Distress Eye Exam: Bilateral Eye: EOMI, Normal Inspection Ears: Normal External Exam, Hearing Grossly Normal Nose: Normal Inspection Throat/Mouth: Normal Inspection, Normal Voice, No Airway Compromise Head: Atraumatic, Normocephalic Neck: Normal Inspection, Supple, Non-Tender, Full Range of Motion Respiratory/Chest: No Respiratory Distress, Lungs Clear, Normal Breath Sounds, No Accessory Muscle Use, Chest Non-Tender Cardiovascular: Normal Peripheral Pulses, Regular Rate, Rhythm, No Edema, No Gallop, No JVD, No Rub, Systolic Murmur Peripheral Pulses: 2+: Radial (L), Radial (R) GI/Abdominal: Normal Bowel Sounds, Soft, Non-Tender (Male) Exam: Deferred Rectal (Males) Exam: Deferred Back Exam: Normal Inspection, Full Range of Motion, NT Extremities: Normal Inspection, Normal Range of Motion, Non-Tender, Normal Capillary Refill, No Pedal Edema Neurological: Alert, Oriented, CN II-XII Intact, Normal Cognition, Normal Reflexes, No Motor/Sensory Deficits. No: Normal Gait (hx of foot drop) Psychiatric: Normal Affect, Normal Mood Skin Exam: Warm, Dry, Normal Color, No Rash, Wound/Incision (right foot) Lymphatic: No Adenopathy EKG INTERPRETATION EKG Date: 01/15/18 Time: 20:06 Rhythm: NSR Rate (Beats/Min): 65 [place]: Normal P-Wave: Present QRS: Normal ST-T: Normal QT: Normal Comparison: Change From Previous EKG Course - Vital Signs Last Recorded V/S: Last Vital Signs Temp 97.9 F 01/15/18 20:13 Pulse 65 01/15/18 20:13 Resp 23 H 01/15/18 20:13 BP 209/84 H 01/15/18 20:13 Pulse Ox 100 01/15/18 20:13 - Orders/Labs/Meds Orders: Active Orders 24 hr Category Date Time Status EKG 12 Lead [EKG Documentation Completion] [RC] URGENT Care 01/15/18 20:10 Active Labs: Laboratory Tests 01/15/18 01/15/18 Range/Units 20:20 20:20 WBC 7.0 (5.0-10.0) 10^3/uL RBC 5.09 (4.6-6.2) 10^6/uL Hgb 15.4 D (14.0-18.0) g/dL Hct 45.2 (40.0-54.0) % MCV 88.8 D (80-100) fL MCH 30.3 (27.0-34.0) pg MCHC 34.1 (33.0-35.0) g/dL Plt Count 132 L (150-450) 10^3/uL Neut % (Auto) 74.3 (42.2-75.2) % Lymph % (Auto) 16.2 L (20.5-50.1) % [place] % (Auto) 7.0 (2-8) % Eos % (Auto) 1.9 (1.0-3.0) % Baso % (Auto) 0.6 (0.0-1.0) % Add Manual Diff Yes Neutrophils % (Manual) 79 H (42-75) % Lymphocytes % (Manual) 16 L (20-50) % Monocytes % (Manual) 4 (2-8) % Eosinophils % (Manual) 1 (1-3) % Sodium 133 L (135-145) mmol/L Potassium 4.7 D (3.6-5.0) mmol/L Chloride 99 L (101-111) mmol/L Carbon Dioxide 26.0 (21.0-31.0) mmol/L Anion Gap 12.7 BUN 22 H D (7-18) mg/dL Creatinine 1.4 H D (0.6-1.3) mg/dL Est Cr Clr Drug Dosing 70.06 mL/min Estimated GFR (MDRD) 54 BUN/Creatinine Ratio 15.71 Glucose 238 H (74-105) mg/dL Calcium 9.8 (8.4-10.2) mg/dl Total Bilirubin 1.6 H (0.2-1.0) mg/dL AST 25 (10-42) IU/L ALT 33 (10-60) IU/L Alkaline Phosphatase 70 (42-121) IU/L Total Protein 7.2 (6.7-8.2) g/dl Albumin 4.0 (3.2-5.5) g/dl Globulin 3.2 Albumin/Globulin Ratio 1.25 Departure - Departure Time of Disposition: 21:31 Disposition: Home, Self-Care 01 Condition: Fair Clinical Impression: Hypertension Qualifiers: Hypertension type: unspecified Qualified Code(s): I10 - Essential (primary) hypertension Instructions: How to Take Your Blood Pressure, [id number], DASH Eating Plan, Hypertension, [id number] Forms: ED Department Discharge Additional Instructions: Take all medications as prescribed Follow up with your primary care physician if continued concerns with blood pressure Return to ER if you continue to have problems with high blood pressure and cannot get it down. - My Orders Last 24 Hours: My Active Orders 01/15/18 20:10 EKG 12 Lead [EKG Documentation Completion] [RC] URGENT - Assessment/Plan Last 24 Hours: My Active Orders 01/15/18 20:10 EKG 12 Lead [EKG Documentation Completion] [RC] URGENT
[2018-01-15 20:19] VITALS: BP 209/84
[2018-01-15 20:59] LABS: ANION GAP 12.7
== END 2018-01-15 21:50 | disposition home or self-care (01) ==
LOC: DL.ED 20:02
DX: I10 Essential (primary) hypertension (principal); E11.9 Type 2 diabetes mellitus without complications; S90.821A Blister (nonthermal), right foot, initial encounter; Z79.4 Long term (current) use of insulin; Z79.82 Long term (current) use of aspirin; Z94.0 Kidney transplant status; Z88.8 Allergy status to other drugs, medicaments and biological substances
CPT/HCPCS: 36415; 80053; 85025; 93005; 93010; 99283; 99284

== ENCOUNTER 2020-01-31 15:47 | Emergency (ER) | payer MEDICAID, MEDICARE ==
[2020-01-31 16:28] VITALS: BP 153/79; PULSE 64
[2020-01-31 17:58] LABS: ANION GAP 9.1 mEq/L (7-13)
--- NOTE | 2020-01-31 18:04 | EDM.PDOC ---
ED HPI GENERAL MEDICAL PROBLEM - General Chief Complaint: Abdominal Pain Stated Complaint: STOMACH ISSUES, EAR INFECTION BOTH SIDES Time Seen by Provider: 01/31/20 17:10 Source of Information: Reports: Patient, RN, RN Notes Reviewed History Limitations: Reports: No Limitations - History of Present Illness INITIAL COMMENTS - FREE TEXT/NARRATIVE: Patient presents to the ED via personal vehicle with complaints of burning paraesthesia to right upper quadrant. He relates the feeling began on Monday and has not progressed. He denies pain, nausea, vomiting, dysuria, hematuria, melena, dark tarry stools, fever, shaking chills, or recent illness. He states the paraesthesia is worse upon awakening, but if he is up moving he does not feel it. He has not taken any medications for this problem. Additionally, he verbalizing a feeling of fullness in both ears. He denies vision changes, decreased hearing, or dizziness. - Related Data Allergies Allergy/AdvReac Type Severity Reaction Status Date / Time metformin Allergy Abdominal Verified 01/31/20 16:23 Pain Home Meds: Home Meds Metoprolol Succinate 100 mg PO BID 01/28/14 [History] amLODIPine Besylate [Amlodipine Besylate] 10 mg PO DAILY 01/28/14 [History] Insulin Detemir [Levemir] 12 units SQ BID 04/20/16 [History] Insulin Aspart [Novolog Flexpen] 10 units SQ BID 07/18/16 [History] Prednisone [IJP: Prednisone] 5 mg PO DAILY 09/04/16 [History] mycophenolate mofetiL [Cellcept] 250 mg PO BID 09/04/16 [History] calcitrioL [Calcitriol] 0.25 mcg PO DAILY 12/11/16 [History] Tacrolimus [Envarsus Xr] 2.5 mg PO DAILY 09/26/17 [History] Acetaminophen [Tylenol] 325 mg PO DAILY 01/15/18 [History] Aspirin [Ecotrin EC] 81 mg PO DAILY 01/15/18 [History] Tacrolimus 3 mg PO DAILY 01/15/18 [History] mycophenolate mofetiL [Cellcept] 1,000 mg PO BID 01/15/18 [History] Sod Phos Di, [place]/K Phos [place] [K-Phos Neutral Tablet] 250 mg PO BID 01/31/20 [History] Past Medical History HEENT History: Reports: Cataract Cardiovascular History: Reports: Hypertension Respiratory History: Reports: Bronchitis, Recurrent, Pneumonia, Recurrent Gastrointestinal History: Reports: None Genitourinary History: Reports: Other (See Below) Other Genitourinary History: former hemodialysis Musculoskeletal History: Reports: None Neurological History: Reports: None Psychiatric History: Reports: None Endocrine/Metabolic History: Reports: Diabetes, Type II Hematologic History: Reports: None Immunologic History: Reports: Solid Organ Transplant Oncologic (Cancer) History: Reports: None Dermatologic History: Reports: Other (See Below) Other Dermatologic History: abscess - Infectious Disease History Infectious Disease History: Reports: None - Past Surgical History Head Surgeries/Procedures: Reports: None HEENT Surgical History: Reports: Cataract Surgery Male Surgical History: Reports: Nephrectomy, Other (See Below) Other Male Surgeries/Procedures: kidney transplant 11/21/16 Social & Family History - Family History Family Medical History: Noncontributory - Tobacco Use Smoking Status *Q: Never Smoker Second Hand Smoke Exposure: No - Caffeine Use Caffeine Use: Reports: Coffee - Recreational Drug Use Recreational Drug Use: No - Living Situation & Occupation Living situation: Reports: with Family ED ROS GENERAL - Review of Systems Review Of Systems: Comprehensive ROS is negative, except as noted in HPI. ED EXAM, GI/ABD - Physical Exam Exam: See Below Exam Limited By: No Limitations General Appearance: Alert, WD/WN, No Apparent Distress Ears: Other (Bilateral cerumen impaction) Head: Atraumatic, Normocephalic Neck: Normal Inspection, Supple, Non-Tender Respiratory/Chest: No Respiratory Distress, Lungs Clear, Normal Breath Sounds, No Accessory Muscle Use, Chest Non-Tender Cardiovascular: Regular Rate, Rhythm, No Edema, No Gallop, No JVD, No Murmur, No Rub GI/Abdominal Exam: Normal Bowel Sounds, Soft, No Distention, No Mass, Tender (To deep palpation of RUQ) (Male) Exam: Deferred Back Exam: Normal Inspection, Full Range of Motion. No: CVA Tenderness (L), CVA Tenderness (R) Neurological: Alert, Oriented, CN II-XII Intact, Normal Cognition, Normal Gait, No Motor/Sensory Deficits Skin Exam: Warm, Dry, Intact, Normal Color, No Rash. No: Ecchymosis, Erythema, Petechiae, Rash Course - Vital Signs Last Recorded V/S: Last Vital Signs Temp 97.2 F 01/31/20 16:26 Pulse 64 01/31/20 16:26 Resp 18 01/31/20 16:26 BP 153/79 H 01/31/20 16:26 Pulse Ox 100 01/31/20 16:26 - Orders/Labs/Meds Labs: Laboratory Tests 01/31/20 01/31/20 Range/Units 17:17 17:17 WBC 7.2 (5.0-10.0) 10^3/uL RBC 5.26 (4.6-6.2) 10^6/uL Hgb 16.6 (14.0-18.0) g/dL Hct 47.0 (40.0-54.0) % MCV 89.4 (80-100) fL MCH 31.6 (27.0-34.0) pg MCHC 35.3 H (33.0-35.0) g/dL Plt Count 120 L (150-450) 10^3/uL Neut % (Auto) 74.2 (42.2-75.2) % Lymph % (Auto) 12.9 L (20.5-50.1) % [place] % (Auto) 8.4 H (2-8) % Eos % (Auto) 3.9 H (1.0-3.0) % Baso % (Auto) 0.6 (0.0-1.0) % Sodium 136 (136-145) mmol/L Potassium 4.1 (3.5-5.1) mmol/L Chloride 99 (98-107) mmol/L Carbon Dioxide 32 (21-32) mmol/L Anion Gap 9.1 (7-13) mEq/L BUN 18 (7-18) mg/dL Creatinine 1.58 H (0.70-1.30) mg/dL Est Cr Clr Drug Dosing 60.71 mL/min Estimated GFR (MDRD) 46 BUN/Creatinine Ratio 11.4 (No establ ref range) Glucose 233 H (74-99) mg/dL Calcium 9.1 (8.5-10.1) mg/dL Total Bilirubin 1.3 H (0.2-1.0) mg/dL AST 17 (15-37) U/L ALT 37 (16-63) U/L Alkaline Phosphatase 73 (46-116) U/L C-Reactive Protein 0.6 (0.0-0.9) mg/dL Total Protein 7.1 (6.4-8.2) g/dL Albumin 3.7 (3.4-5.0) g/dL Globulin 3.4 Albumin/Globulin Ratio 1.1 Amylase 34 (25-115) U/L Lipase 179 (73-393) U/L - Re-Assessments/Exams Free Text/Narrative Re-Assessment/Exam: 01/31/20 18:04 CBC and CMP unremarkable. Patient encouraged to follow up with primary care provider on Monday Departure - Departure Time of Disposition: 18:05 Disposition: Home, Self-Care 01 Condition: Good Clinical Impression: Complaint of paresthesia - Discharge Information *PRESCRIPTION DRUG MONITORING PROGRAM REVIEWED*: Not Applicable *COPY OF PRESCRIPTION DRUG MONITORING REPORT IN PATIENT ANGUS: Not Applicable Instructions: Paresthesia Additional Instructions: Apply Debrox to bilateral ear canals to soften cerumen. Follow up with primary care provider on Monday for cerumen impaction removal and numbness/burning to right upper abdomen. Sepsis Event Note (ED) - Evaluation Sepsis Screening Result: No Definite Risk - Focused Exam Vital Signs: Vital Signs Temp Pulse Resp BP Pulse Ox 01/31/20 16:26 97.2 F 64 18 153/79 H 100
== END 2020-01-31 18:13 | disposition home or self-care (01) ==
LOC: DL.ED 15:47
DX: R20.2 Paresthesia of skin (principal); I10 Essential (primary) hypertension; E11.9 Type 2 diabetes mellitus without complications; Z79.82 Long term (current) use of aspirin; Z88.8 Allergy status to other drugs, medicaments and biological substances; Z79.4 Long term (current) use of insulin; Z79.899 Other long term (current) drug therapy
CPT/HCPCS: 36415; 80053; 82150; 83690; 85025; 86140; 99284

== ENCOUNTER 2020-07-11 17:42 | Emergency (ER) | payer MEDICAID ==
[2020-07-11 17:59] VITALS: BP 168/87; PULSE 67
--- NOTE | 2020-07-11 18:14 | EDM.PDOC ---
ED HPI GENERAL MEDICAL PROBLEM - General Chief Complaint: ENT Problem Stated Complaint: BOTH EARS INFECTED Time Seen by Provider: 07/11/20 18:00 Source of Information: Reports: Patient, RN, RN Notes Reviewed History Limitations: Reports: No Limitations - History of Present Illness INITIAL COMMENTS - FREE TEXT/NARRATIVE: Patient presents to the ED via personal vehicle for complaints of sinus congestion and ear pain for the past two weeks. The patient states these symptoms have maintained in severity over this time, but he is concerned as he is not improving. He states he has been taking Tylenol 650mg daily for the past two weeks and one dose of Flonase today; neither have offered him much alleviation of symptoms. He in unsure of a history of environmental allergies. He denies recent illness, fever, shaking chills, sore throat, chest pain, palpitations, shortness of breath, or nausea. He does attest to post-nasal drip and cough. - Related Data Allergies Allergy/AdvReac Type Severity Reaction Status Date / Time metformin Allergy Abdominal Verified 07/11/20 17:55 Pain Home Meds: Home Meds Metoprolol Succinate 100 mg PO BID 01/28/14 [History] amLODIPine Besylate [Amlodipine Besylate] 10 mg PO DAILY 01/28/14 [History] Insulin Detemir [Levemir] 12 units SQ BID 04/20/16 [History] Insulin Aspart [Novolog Flexpen] 10 units SQ BID 07/18/16 [History] Prednisone [IJP: Prednisone] 5 mg PO DAILY 09/04/16 [History] mycophenolate mofetiL [Cellcept] 250 mg PO BID 09/04/16 [History] calcitrioL [Calcitriol] 0.25 mcg PO DAILY 12/11/16 [History] Tacrolimus [Envarsus Xr] 2.5 mg PO DAILY 09/26/17 [History] Acetaminophen [Tylenol] 325 mg PO DAILY 01/15/18 [History] Aspirin [Ecotrin EC] 81 mg PO DAILY 01/15/18 [History] Tacrolimus 3 mg PO DAILY 01/15/18 [History] mycophenolate mofetiL [Cellcept] 1,000 mg PO BID 01/15/18 [History] Sod Phos Di, [place]/K Phos [place] [K-Phos Neutral Tablet] 250 mg PO BID 01/31/20 [History] Past Medical History HEENT History: Reports: Cataract Cardiovascular History: Reports: Hypertension Respiratory History: Reports: Bronchitis, Recurrent, Pneumonia, Recurrent Gastrointestinal History: Reports: None Genitourinary History: Reports: Other (See Below) Other Genitourinary History: former hemodialysis Musculoskeletal History: Reports: Other (See Below) Other Musculoskeletal History: ankle issue Neurological History: Reports: None Psychiatric History: Reports: None Endocrine/Metabolic History: Reports: Diabetes, Type II, Obesity/BMI 30+ Hematologic History: Reports: None Immunologic History: Reports: Solid Organ Transplant Oncologic (Cancer) History: Reports: None Dermatologic History: Reports: Other (See Below) Other Dermatologic History: abscess - Infectious Disease History Infectious Disease History: Reports: None - Past Surgical History Head Surgeries/Procedures: Reports: None HEENT Surgical History: Reports: Cataract Surgery Cardiovascular Surgical History: Reports: None Respiratory Surgical History: Reports: None GI Surgical History: Reports: Appendectomy, Cholecystectomy Male Surgical History: Reports: Nephrectomy, Other (See Below) Other Male Surgeries/Procedures: kidney transplant 11/21/16 Endocrine Surgical History: Reports: None Neurological Surgical History: Reports: None Musculoskeletal Surgical History: Reports: None Social & Family History - Family History Family Medical History: No Pertinent Family History - Tobacco Use Tobacco Use Status *Q: Never Tobacco User - Caffeine Use Caffeine Use: Reports: Coffee - Recreational Drug Use Recreational Drug Use: No - Living Situation & Occupation Living situation: Reports: with Family ED ROS ENT - Review of Systems Review Of Systems: Comprehensive ROS is negative, except as noted in HPI. ED EXAM, ENT - Physical Exam Exam: See Below Exam Limited By: No Limitations General Appearance: Alert, No Apparent Distress Eye Exam: Bilateral Eye: Conjunctival Injection, EOMI, Normal Inspection, PERRL (3mm) Ears: Normal External Exam, Normal Canal, TM Fluid. No: Mastoid Swelling, Mastoid Tenderness, TM Bulging, TM Erythema, TM Blood Nose: Clear Rhinorrhea, Injected Turbinates. No: Nasal Deformity, Nasal Swelling, Nasal Tenderness, Nasal Ecchymosis Mouth/Throat: Normal Gums, Normal Lips, Normal Teeth, Pharyngeal Erythema (Posterior). No: Hoarse Voice, Tonsillar Erythema, Tonsillar Exudates, Tonsillar Swelling, Uvular Deviation, Uvular Edema Head: Atraumatic, Normocephalic Neck: Normal Inspection, Supple, Non-Tender, Full Range of Motion. No: Lymphadenopathy (L), Lymphadenopathy (R) Respiratory/Chest: No Respiratory Distress, Lungs Clear, Normal Breath Sounds, No Accessory Muscle Use, Chest Non-Tender Cardiovascular: Normal Peripheral Pulses, Regular Rate, Rhythm, No Edema, No Gallop, No JVD, No Murmur, No Rub GI/Abdominal: Normal Bowel Sounds, Soft, Non-Tender, No Distention, No Mass, Pelvis Stable (Male) Exam: Deferred Rectal (Males) Exam: Deferred Back: Normal Inspection, Full Range of Motion Extremities: Normal Inspection, Normal Range of Motion, Non-Tender, No Pedal Edema, Normal Capillary Refill Neurological: Alert, Oriented, CN II-XII Intact, Normal Cognition, Normal Gait, No Motor/Sensory Deficits Psychiatric: Normal Affect, Normal Mood Skin: Warm, Dry, Intact, Normal Color, No Rash. No: Ecchymosis, Erythema, Jaundice, Mottled, Pallor, Petechiae Course - Vital Signs Last Recorded V/S: Last Vital Signs Temp 98.0 F 07/11/20 17:56 Pulse 67 07/11/20 17:56 Resp 18 07/11/20 17:56 BP 168/87 H 07/11/20 17:56 Pulse Ox 98 07/11/20 17:56 - Re-Assessments/Exams Free Text/Narrative Re-Assessment/Exam: 07/11/20 Reviewed findings of examination and likelihood of environmental allergy cause to symptoms. Discussed daily use of nasal corticosteroid and antihistamine. Red flag signs and symptoms which would warrant reevaluation reviewed. Patient verbalized understanding and agreement with the plan of care. Departure - Departure Time of Disposition: 18:09 Disposition: Home, Self-Care 01 Condition: Good Clinical Impression: Fluid level behind tympanic membrane of both ears, Allergic sinusitis Headache Qualifiers: Headache type: unspecified Headache chronicity pattern: acute headache Intractability: not intractable Qualified Code(s): R51.9 - Headache, unspecified - Discharge Information *PRESCRIPTION DRUG MONITORING PROGRAM REVIEWED*: Not Applicable *COPY OF PRESCRIPTION DRUG MONITORING REPORT IN PATIENT ANGUS: Not Applicable Referrals: PCP,None [Primary Care Provider] - Forms: ED Department Discharge Additional Instructions: 1.) You may take Zyrtec 10mg daily. You may also take Benadryl 25-50mg at night for better symptom relief. 2.) Change your Flonase dosing to 2 sprays in the morning and 2 sprays at night until symptoms resolve, then back the dose down to 2 sprays daily. 3.) You may take Tylenol 1000mg every six hours for symptoms of headache 4.) Drink plenty of water to stay hydrated and keep nasal secretions thin. Sepsis Event Note (ED) - Evaluation Sepsis Screening Result: No Definite Risk
== END 2020-07-11 18:18 | disposition home or self-care (01) ==
LOC: DL.ED 17:42
DX: J30.9 Allergic rhinitis, unspecified (principal); H73.93 Unspecified disorder of tympanic membrane, bilateral; I10 Essential (primary) hypertension; E11.9 Type 2 diabetes mellitus without complications; E66.9 Obesity, unspecified; Z68.35 Body mass index [BMI] 35.0-35.9, adult; Z79.4 Long term (current) use of insulin; Z79.82 Long term (current) use of aspirin; Z79.899 Other long term (current) drug therapy; Z88.8 Allergy status to other drugs, medicaments and biological substances
CPT/HCPCS: 99283

== ENCOUNTER 2022-05-29 22:10 | Emergency (ER) | payer MEDICAID, MEDICARE ==
[2022-05-29] MEDS ORDERED: Sodium Chloride 0.9% 10 ML Syringe FLUSH PRN (22:29)
[2022-05-29 23:01] LABS: ANION GAP 11.2 mEq/L (7-13); CHLORIDE,CL 102 mmol/L (98-107); SODIUM,NA 138 mmol/L (136-145)
[2022-05-29 23:12] LABS: ESTIMATED GFR 50 mL/min (>=60)
[2022-05-29] MEDS ORDERED: Sodium Chloride 0.9% 1,000 ML IV ONE (23:28)
[2022-05-29] MEDS ORDERED: Doxazosin 2 MG Tab PO ONE (23:41)
[2022-05-29 23:54] LABS: CORONAVIRUS COVID-19 NAA NEGATIVE (NEGATIVE); RESPIRATORY SYNCYTIAL VIR NAA NEGATIVE (NEGATIVE)
[2022-05-30] MEDS ORDERED: Furosemide 40 MG/4 ML VIAL IVPUSH ONE (01:01)
[2022-05-30] MEDS ORDERED: Doxazosin 2 MG Tab PO ONE (01:01)
[2022-05-30] MEDS ORDERED: Labetalol 20 MG/4 ML Syringe IVPUSH ONE (01:05)
[2022-05-30 02:13] VITALS: BP 147/76; PULSE 54
== END 2022-05-30 02:21 | disposition home or self-care (01) ==
LOC: DL.ED 22:10
DX: I10 Essential (primary) hypertension (principal); E11.9 Type 2 diabetes mellitus without complications; E66.9 Obesity, unspecified; Z68.38 Body mass index [BMI] 38.0-38.9, adult; Z88.8 Allergy status to other drugs, medicaments and biological substances; Z79.899 Other long term (current) drug therapy; Z79.4 Long term (current) use of insulin; Z90.49 Acquired absence of other specified parts of digestive tract; Z20.822 Contact with and (suspected) exposure to COVID-19
CPT/HCPCS: 0241U; 36415; 71045; 80053; 81001; 83605; 83735; 83880; 84484; 85025; 86140; 93005; 96361; 96374; 99284; A9270; J1940; J7030; 93010

== ENCOUNTER 2024-07-26 19:32 | Emergency (ER) | payer MEDICAID ==
[2024-07-26 19:58] VITALS: BP 180/102; PULSE 78
== END 2024-07-26 20:10 | disposition home or self-care (01) ==
LOC: DL.ED 19:32
DX: L89.899 Pressure ulcer of other site, unspecified stage (principal); B35.3 Tinea pedis; I10 Essential (primary) hypertension; E11.9 Type 2 diabetes mellitus without complications; E66.9 Obesity, unspecified; Z68.34 Body mass index [BMI] 34.0-34.9, adult; Z90.49 Acquired absence of other specified parts of digestive tract; Z88.8 Allergy status to other drugs, medicaments and biological substances; Z79.4 Long term (current) use of insulin; Z79.899 Other long term (current) drug therapy
CPT/HCPCS: 99282

== ENCOUNTER 2024-07-30 22:50 | Emergency (ER) | payer MEDICAID ==
[2024-07-30 23:17] VITALS: BP 134/71; PULSE 74
== END 2024-07-31 01:21 | disposition home or self-care (01) ==
LOC: DL.ED 22:50
DX: S82.842A Displaced bimalleolar fracture of left lower leg, initial encounter for closed fracture (principal); I10 Essential (primary) hypertension; E11.40 Type 2 diabetes mellitus with diabetic neuropathy, unspecified; E66.9 Obesity, unspecified; Z88.8 Allergy status to other drugs, medicaments and biological substances; Z79.899 Other long term (current) drug therapy; Z79.02 Long term (current) use of antithrombotics/antiplatelets; Z79.4 Long term (current) use of insulin; Z90.49 Acquired absence of other specified parts of digestive tract; W19.XXXA Unspecified fall, initial encounter; Z68.36 Body mass index [BMI] 36.0-36.9, adult
CPT/HCPCS: 29515; 73562-LT; 73562-RT; 73610-LT; 73610-RT; 99283-25

== ENCOUNTER 2024-10-20 16:39 | Emergency (ER) | payer MEDICAID ==
[2024-10-20 16:48] VITALS: BP 136/78; PULSE 71
== END 2024-10-20 17:38 | disposition home or self-care (01) ==
LOC: DL.ED 16:39
DX: S82.302G Unspecified fracture of lower end of left tibia, subsequent encounter for closed fracture with delayed healing (principal); I10 Essential (primary) hypertension; E11.9 Type 2 diabetes mellitus without complications; E66.9 Obesity, unspecified; Z88.5 Allergy status to narcotic agent; Z79.899 Other long term (current) drug therapy; Z79.4 Long term (current) use of insulin; Z90.49 Acquired absence of other specified parts of digestive tract; X50.9XXA Other and unspecified overexertion or strenuous movements or postures, initial encounter
CPT/HCPCS: 73600-LT; 99283